=== PATIENT | male | born 1980 | race Caucasian/White ===

== ENCOUNTER → 2018-01-03 | Day surgery (SDC) | payer BC ==
[2018-01-02 15:21] LABS: BASOPHILS % 0.4 % (0.0-1.0); EOSINOPHILS # (AUTO) 0.4 (0.0-0.4); EOSINOPHILS % 5.1 % (0.0-6.0); HEMATOCRIT 37.9 % (38.2-49.6); HEMOGLOBIN 13.2 g/dL (14.0-18.0); LYMPHOCYTES # (AUTO) 2.4 (1.0-3.2); LYMPHOCYTES % 30.2 % (18.0-39.1); MEAN CORPUSCULAR HEMOGLOBIN 28.3 pg (28-32); MEAN CORPUSCULAR HGB CONC 34.8 g/dL (31-35); MEAN CORPUSCULAR VOLUME 81.3 fL (81-99); MONOCYTES # (AUTO) 0.5 (0.2-0.8); MONOCYTES % 5.6 % (4.4-11.3); NEUTROPHILS # (AUTO) 4.7 (2.1-6.9); NEUTROPHILS % 58.6 % (38.7-80.0); PLATELET COUNT 302 x10e3/uL (140-360); RED BLOOD COUNT 4.66 x10e6/uL (4.3-5.7); RED CELL DISTRIBUTION WIDTH 12.6 % (11.7-14.4)
[2018-01-02 15:42] LABS: ANION GAP 14.8 mmol/L (8-16); BLOOD UREA NITROGEN 18 mg/dL (7-26); BUN/CREATININE RATIO 19 (6-25); CALCIUM 10.1 mg/dL (8.4-10.2); CARBON DIOXIDE 28 mmol/L (22-29); CHLORIDE 99 mmol/L (98-107); CREATININE, SERUM 0.95 mg/dL (0.72-1.25); EST GLOMERULAR FILTRATION RATE > 60 ML/MIN (60-); GLUCOSE 124 mg/dL (74-118); POTASSIUM 3.8 mmol/L (3.5-5.1); SODIUM 138 mmol/L (136-145)
--- NOTE | 2018-01-02 16:26 | Diagnostic Imaging Report ---
PROCEDURE: Frontal and lateral views of the chest. COMPARISON: None. INDICATIONS: PRE-OPERATIVE CHEST X-RAY FOR LEFT FOOT SURGERY FINDINGS: Lines/tubes: Left-sided PICC line has its distal tip projecting in the proximal right atrium. Lungs: The lungs are well inflated and clear. There is no evidence of pneumonia or pulmonary edema. Pleura: There is no pleural effusion or pneumothorax. Heart and mediastinum: The heart and the mediastinum are normal. Bones: No acute bony abnormality. IMPRESSION: 1. No acute cardiopulmonary abnormalities. Owen Vu M.D. Dictated by: Owen Vu M.D. on 01/02/2018 at 16:31 Electronically approved by: Owen Vu M.D. on 01/02/2018 at 16:31
[~2018-01-03] MED LIST: BACITRACIN 50,000 UNIT VIAL ONE; BUPIVACAINE HCL 0.5% 10ML MPF VIAL INJ ONE; CEFAZOLIN SOD 2 GM/D5W 50ML 50 ML IV ONE; CUBICIN500 MG/VIA IV; DEXAMETHASONE SOD PHOS INJ 4 MG/ML VIAL ONE; FENTANYL CITRATE/PF 100MCG/2 ML INJ ONE; KETOROLAC TROMETHAMINE 30 MG/ML VIAL ONE; LEVEMIR100 UNIT/1 SC; LIDOCAINE HCL 2% LOCAL INJ 5 ML SDV VIAL INJ ONE; LISINOPRIL10 MG PO; METOPROLOL TART25 MG PO; MIDAZOLAM HCL 2 MG/2 ML VIAL ONE; NEOMYCIN/POLYMYX/BACITR OINT 0.9 GM PKT ONE; NOVOLOG100 UNIT/1 SC; ONDANSETRON HCL INJ 2 MG/ML VIAL ONE; PROPOFOL IV EMULSION 10 MG/ML 20 ML VIAL ONE; SEVOFLURANE INHAL SOLN 250 ML PEN BTL ONE
--- NOTE | 2018-01-09 23:23 | Operative Report ---
DATE OF PROCEDURE: Patient is seen complaining of a painless osteomyelitis of the proximal phalanx and intermediate phalanx of the left 3rd digit. A chronic ulceration is present on the dorsal aspect of the 3rd digit. The wound measures 2 cm x 1.5 cm. PREOPERATIVE DIAGNOSIS: Osteomyelitis of the 3rd digit on the left foot with rigid contraction. POSTOPERATIVE DIAGNOSIS: Osteomyelitis of the 3rd digit on the left foot with rigid contraction. TITLE OF THE OPERATION: Excision of bone and debridement of the proximal interphalangeal joint with grafting utilizing Integra graft to the left foot. PROCEDURE IN DETAIL: Patient was taken to the operating room in mildly sedated state and placed upon the operating table in supine position. Following induction of general anesthetic, left lower extremity was placed upon the operating table. No tourniquet was used. A debridement with linear longitudinal incision was performed of the 3rd proximal interphalangeal joint level with intermediate phalanx. All necrotic bone was debrided from the area under fluoroscopy. Only good bone remaining. The bone was cultured and the area was irrigated with copious amounts of sterile saline solution. The patient is already on IV antibiotics and will be on for several more weeks. This having been accomplished, the deep tissues were further remodeled with removal of all devitalized tissue. Vascular status was noted to be intact to the digit. The patient was then flapped with regards to a plantar flap closure of the digit, which also allowed the removal of the associated bone. The Integra graft was 4 x 4 and split in half. The graft was scraped from the applicator and on one half placed within the void. The remaining graft was stapled surrounding the chronic wound on the dorsal aspect of the foot. The area was irrigated with copious amounts of sterile saline solution. The appropriate amounts of sterile compressive dressing were applied and patient left the operating room with vital signs stable in apparent satisfactory condition having tolerated both anesthetic and procedure very well. Job#: [id number]
== END | disposition home or self-care (01) ==
LOC: OR 10:01
PROVIDERS: ATTEND Podiatrist Foot Surgery
DX: M86.172 Other acute osteomyelitis, left ankle and foot (principal); M86.672 Other chronic osteomyelitis, left ankle and foot; M20.5X2 Other deformities of toe(s) (acquired), left foot; E11.9 Type 2 diabetes mellitus without complications; I10 Essential (primary) hypertension; Z01.810 Encounter for preprocedural cardiovascular examination; Z01.812 Encounter for preprocedural laboratory examination; Z01.818 Encounter for other preprocedural examination; Z79.4 Long term (current) use of insulin
CPT/HCPCS: 15275; 28124; 36415 ×2; 71046; 80048; 82948; 85025; 87071; 87075; 87186; 87205; 88305; 88311; 93005; J1100; J1885; J2001; J2250; J2405; Q4104; 76000